=== PATIENT | female | born 1945 | race Caucasian/White ===

== ENCOUNTER 2019-04-18 08:00 | Day surgery (SDC) | payer OTHER ==
[2019-04-15 15:29] VITALS: BMI 21.2
[2019-04-18] MEDS ORDERED: PROPOFOL 20 ML ONE ×2 (08:03)
[2019-04-18 09:22] VITALS: TEMP 97.6
[2019-04-18 09:44] VITALS: BP 142/74; PULSE 65
== END 2019-04-18 09:50 | disposition home or self-care (01) ==
LOC: FASU-ENDO 08:00
PROVIDERS: ATTEND Internal Medicine Gastroenterology
PROC: 0DJD8ZZ Inspection of Lower Intestinal Tract, Via Natural or Artificial Opening Endoscopic (ICD-10-PCS; principal; 2019-04-18 08:58)
DX: Z86.010 Personal history of colon polyps (principal)